=== PATIENT | male | born 1940 | race Hispanic/Latino ===

== ENCOUNTER 2019-09-11 16:11 | Emergency (ER) | payer MEDICARE ==
--- NOTE | 2019-09-11 16:59 | Emergency Department Report ---
Blank Doc - Documentation Documentation: 79-year-old male that presents with left wrist lac. Stated happened at work a ccidentally. This initial assessment/diagnostic orders/clinical plan/treatment(s) is/are subject to change based on patient's health status, clinical progression and re- assessment by fellow clinical providers in the ED. Further treatment and workup at subsequent clinical providers discretion. Patient/guardians urged not to elope from the ED as their condition may be serious if not clinically assessed and managed. Initial orders include: 1- Patient sent to [facility] for further evaluation and treatment
[2019-09-11] MEDS ORDERED: XYLOCAINE 1% MPF 5 mL INFILTRATI ONE (20:46)
[2019-09-11] MEDS ORDERED: ULTRAM PO ONE (20:46)
[2019-09-11] MEDS ORDERED: BOOSTRIX IM ONE (20:46)
--- NOTE | 2019-09-11 21:31 | Emergency Department Report ---
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 ) Symptoms: Yes Swelling (mild ), Yes Laceration or Abrasion, No Pain with Movement, No Deformity, No Limited Range of Movement, No Numbness, No Weakness, No Bruising/Ecchymosis Other History: 3 cm laceration left lateral forarm, distal pulses intact no nerve tendon or muscle damage, pain with palpation no deformity, bleeding controlled, minimal swelling ED Review of Systems ROS: Stated complaint: LACERATION TO L WRIST Other details as noted in HPI Constitutional: denies: chills, fever Eyes: denies: eye pain, eye discharge, vision change ENT: denies: ear pain, throat pain Respiratory: denies: cough, shortness of breath, wheezing Cardiovascular: denies: chest pain, palpitations Endocrine: no symptoms reported Gastrointestinal: denies: abdominal pain, nausea, diarrhea Genitourinary: denies: urgency, dysuria Musculoskeletal: denies: joint swelling, myalgia Skin: other (laceration left forearm). denies: rash, lesions Neurological: denies: headache, weakness, paresthesias Psychiatric: denies: anxiety, depression Hematological/Lymphatic: denies: easy bleeding, easy bruising ED Past Medical Hx - Past Medical History Previous Medical History?: No - Surgical History Past Surgical History?: No - Social History Smoking Status: Current Every Day Smoker Substance Use Type: None - Medications Home Medications: Home Medications Medication Instructions Recorded Confirmed Last Taken Type Gentamicin 0.3% Ophth Soln 2 drops OP QID #5 ml 08/16/14 Unknown Rx Acetaminophen [Tylenol] 650 mg PO QID PRN #30 capsule 09/11/19 Unknown Rx cephALEXin [Keflex] 500 mg PO Q8HR 7 Days #21 cap 09/11/19 Unknown Rx Upper Extremity Exam - Exam General: Vital signs noted. No distress. Alert and acting appropriately. Head and Torso: No HEENT Abnormality, No Neck Tenderness, No Chest/Lungs Abnormality, No Abdominal Tenderness, No Back Tenderness Shoulder Exam: Yes Normal Range of Motion in Shoulder, No Shoulder Tenderness, No Clavicle Tenderness, No Shoulder Deformity, No AC Joint Tenderness Arm Exam: No Arm/Humerus Tenderness, No Arm Deformity Elbow: No Elbow Tenderness, No Normal Range of Motion in Elbow, No Elbow Deformity Forearm: Yes Forearm Tenderness (at laceration site.), No Forearm Deformity, No Pain with Pronation, No Pain with Supination Wrist: Yes Normal ROM in Wrist, No Wrist Tenderness, No Wrist Deformity, No Snuffbox Tenderness, No Pain with Axial Thumb Compression Hand: Yes Normal ROM in Digit(s), No Hand Tenderness, No Hand Deformity, No Digit Tenderness, No Digit(s) Deformity, No Tendon Dysfunction CMS Exam: Yes Broken Skin, Yes Normal Distal Pulses, Yes Normal Capillary Refill, Yes Normal Distal Sensation ED Course Vital Signs 09/11/19 16:39 Temperature 97.8 F Pulse Rate 49 L Respiratory 16 Rate Blood Pressure 174/80 O2 Sat by Pulse 99 Oximetry - Laceration /Wound Repair Left Lateral Arm Wound Location: upper extremity (left lateral forearm laceration no nerve ) Wound Length (cm): 3 Wound's Depth, Shape: superficial Wound Explored: clean Irrigated w/ Saline (ccs): 30 Betadine Prep?: Yes Anesthesia: 1% Lidocaine Volume Anesthetic (ccs): 2 Wound Debrided: none required no foreign body Wound Repaired With: sutures Suture Size/Type: 3:0, proline Number of Sutures: 7 Layer Closure?: No Sterile Dressing Applied?: Yes Progress: left forearm laceration , 3 cm , bleeding controlled , rom intact distal pulses intact, no nerve tendon, or muscle damage, wound cleaned with betadinoe solution, anesthesia with 1% lidocaine 2cc, wound irrigated with 30 cc sterile saline , wound manualluy explored,no foreign body, wound closed with 3.0 prolene x 7 sutures running, all bleeding controlled, sterile dressing applied, xray no fracture no foreign body, pt given wound care instructions , verbalized agreement and understanding ll bleeding is controlled , pt tolerated procedure with minimal distress . ED Medical Decision Making - Medical Decision Making Impression left for earm laceration, repaired see laceration note. , follow up with pcp in 2-3 days dc to home with rx for keflex,tylenol prn pain. pt given tetanus in ed, pt vital signs noted on triage vital signs, hr now 66, pt advises that this is chronic condition that is followed by his pcp, pt has had cardiology evalation 2 yrs ago for same with no findings. there is no cp no sob no dizziness no lightheadedness no sob no back pain no diaphoresis, lungs sounds clear bilat, pt has pcp pt will follow up with pcp in 2 days, return to ed if symptoms develope or concern. pt dc'd to home in stable condition at this time Critical care attestation.: If time is entered above; I have spent that time in minutes in the direct care of this critically ill patient, excluding procedure time. ED Disposition Clinical Impression: Laceration of forearm, left Qualifiers: Encounter type: initial encounter Qualified Code(s): S51.812A - Laceration without foreign body of left forearm, initial encounter Disposition: DC-01 TO HOME OR SELFCARE Is pt being admited?: No Does the pt Need Aspirin: No Condition: Stable Instructions: Suture Care (ED), Laceration (ED) Prescriptions: cephALEXin [Keflex] 500 mg PO Q8HR 7 Days #21 cap Acetaminophen [Tylenol] 650 mg PO QID PRN #30 capsule PRN Reason: pain Referrals: DAVID MARION MD [Primary Care Provider] - 3-5 Days JM HILARIO MD [Staff Physician] - 3-5 Days Forms: Work/School Release Form(ED)
[2019-09-11 21:49] VITALS: BP 170/86
--- NOTE | 2019-09-11 21:49 | XRay Report ---
Left forearm, single view INDICATION: Pain following injury tonight FINDINGS: There is laceration present over the distal radial aspect of the forearm. The underlying amado ne is intact however. High density material appears to be along or just underneath the skin and subcu taneous fat. There is no definite foreign body seen in the deeper soft tissues. Signer Name: Grady Velázquez MD Signed: 09/11/2019 9:44 PM Workstation Name: [id number]
== END 2019-09-11 21:49 | disposition home or self-care (01) ==
LOC: ED 16:11
DX: S51.812A Laceration without foreign body of left forearm, initial encounter (principal); F17.200 Nicotine dependence, unspecified, uncomplicated; Z79.899 Other long term (current) drug therapy; Z88.6 Allergy status to analgesic agent; W26.8XXA Contact with other sharp object(s), not elsewhere classified, initial encounter; Y93.89 Activity, other specified; Y92.69 Other specified industrial and construction area as the place of occurrence of the external cause; Y99.8 Other external cause status
CPT/HCPCS: 90471; 90715